=== PATIENT | female | born 1975 | race Caucasian/White ===

== ENCOUNTER → 2018-09-05 | Emergency (ER) | payer MEDICAID ==
[~2018-09-05] VITALS: Ht 165.1 cm; Wt 60.0 kg
[~2018-09-05] MED LIST: IBUPROFEN 200 MG TABLET PO ONE; IBUPROFEN 600 MG TABLET ONE
[2018-09-05 03:24] VITALS: BP 144/96
== END ==
LOC: ED 04:19
DX: G44.219 Episodic tension-type headache, not intractable (principal); M54.2 Cervicalgia; Z72.9 Problem related to lifestyle, unspecified
CPT/HCPCS: 99283

== ENCOUNTER 2018-09-08 00:25 | Emergency (ER) | payer MEDICAID ==
[~2018-09-08] VITALS: Ht 165.1 cm; Wt 59.4 kg
--- NOTE | 2018-09-08 00:50 | NUR ---
NO ANSWER X1
--- NOTE | 2018-09-08 01:00 | NUR ---
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
--- NOTE | 2018-09-08 01:13 | NUR ---
DR. NASCIMENTO WAS IN TO EVAL PT. AND DISCUSS POC. PT. TO X-RAY VIA MAME AT THIS TIME.
[2018-09-08] MEDS ORDERED: ONDANSETRON ODT 4 MG ONE (01:15)
[2018-09-08] MEDS ORDERED: KETOROLAC 30 MG/1 ML ONE (01:15)
--- NOTE | 2018-09-08 01:25 | NUR ---
patient medicated for pain. labor operator at bedside for blood draw.
[2018-09-08] MEDS ORDERED: KETOROLAC 30 MG/1 ML IM ONE (01:30)
[2018-09-08] MEDS ORDERED: ONDANSETRON ODT 4 MG PO ONE (01:30)
[2018-09-08 01:44] LABS: BASOPHILS # (AUTO) 0.02 x10^3/uL (0-0.1); BASOPHILS % (AUTO) 0 % (0-1); EOSINOPHILS # (AUTO) 0.08 x10^3/uL (0-0.4); EOSINOPHILS % (AUTO) 1 % (1-7); LYMPHOCYTES # (AUTO) 1.08 x10^3/uL (1-3.4); LYMPHOCYTES % (AUTO) 14 % (22-44); MD NO; MEAN CORPUSCULAR HEMOGLOBIN 29.4 pg (27.0-34.8); MEAN CORPUSCULAR HGB CONC 33.4 g/dL (32.4-35.8); MEAN CORPUSCULAR VOLUME 88.1 fL (80-100); MEAN PLATELET VOLUME 7.5 fL (7.4-10.4); MONOCYTES # (AUTO) 0.69 x10^3/uL (0.2-0.8); MONOCYTES % (AUTO) 9 % (2-9); NEUTROPHILS # (AUTO) 5.68 x10^3/uL (1.8-6.8); NEUTROPHILS % (AUTO) 75 % (42-75); PLATELET COUNT 315 x10^3/uL (130-400); RED BLOOD COUNT 4.23 x10^6/uL (3.82-5.3); RED CELL DISTRIBUTION WIDTH 13.9 % (9.6-15.2)
[2018-09-08 01:48] LABS: ANION GAP 7 mmol/L (5-15); CHLORIDE 103 mmol/L (98-107)
--- NOTE | 2018-09-08 02:08 | NUR ---
PT. PROVIDED WITH SOCKS AND URINE CUP; INSTRUCIONS FOR UA GIVEN. PT. AMBULATORY TO BR WITH STEADY GAIT.
--- NOTE | 2018-09-08 02:21 | NUR ---
URINE SAMPLE COLLECTED AND SENT TO LAB. PT. BACK TO [facility] AND RESTING WITH NADN. DOES STATE PAIN IS NO BETTER AFTER PAIN MEDS GIVEN BY BREAK RN. DR. NASCIMENTO UPDATED; NO NEW ORDERS.
[2018-09-08 02:27] LABS: MICROSCOPIC AUTO
[2018-09-08 02:28] LABS: CULTURE INDICATED? NO
[2018-09-08 02:52] VITALS: BP 140/96
== END 2018-09-08 02:50 | disposition home or self-care (01) ==
LOC: ED 01:32
DX: M25.512 Pain in left shoulder (principal); E87.6 Hypokalemia; R11.0 Nausea; G44.209 Tension-type headache, unspecified, not intractable; Z72.9 Problem related to lifestyle, unspecified
CPT/HCPCS: 36415; 73030; 80048; 81001; 84703; 85025; 93005; 96372; 99284; J1885; Q0162

== ENCOUNTER 2018-09-14 00:28 | Emergency (ER) | payer MEDICAID ==
[~2018-09-14] VITALS: Ht 165.1 cm; Wt 55.0 kg
[2018-09-14] MEDS ORDERED: BACITRACIN OINT 500U/GM, 15 GM TP ONE (01:00)
[2018-09-14 02:18] VITALS: BP 147/83
== END 2018-09-15 02:19 | disposition home or self-care (01) ==
LOC: ED 01:20
DX: T69.022A Immersion foot, left foot, initial encounter (principal); T69.021A Immersion foot, right foot, initial encounter; Z72.9 Problem related to lifestyle, unspecified; Y92.9 Unspecified place or not applicable
CPT/HCPCS: 99283